=== PATIENT | male | born 1960 | race Caucasian/White ===

== ENCOUNTER 2022-07-17 00:30 | Emergency (ER) | payer OTHER ==
[2022-07-17] MEDS ORDERED: Ondansetron PF 4 MG/2 ML Vial ONE ×2 (01:03→03:12)
[2022-07-17] MEDS ORDERED: Dexmedetomidine 200 MCG/2 ML VIAL ONE (02:28)
[2022-07-17] MEDS ORDERED: SUGAMMADEX SODIUM 200 MG/2 ML VIAL ONE (02:29)
[2022-07-17] MEDS ORDERED: Lidocaine Viscous Sol 2% 15 ml UD Cup ONE (02:29)
[2022-07-17 02:36] LABS: SARS-CoV-2 NAA Rapid Test Not Detected (NotDetected)
[2022-07-17] MEDS ORDERED: PROPOFOL 40 ML ONE (02:39)
[2022-07-17] MEDS ORDERED: Succinylcholine 200 MG/10 ml SYRINGE FS ONE (02:42)
[2022-07-17] MEDS ORDERED: PHENYLEPHRINE-NS 100 MCG/ML 10 ML SYRINGE ONE (02:42)
[2022-07-17] MEDS ORDERED: Lidocaine 2% MPF 10 ML AMP (For Epidural Use) ONE (02:48)
[2022-07-17] MEDS ORDERED: Fentanyl 100 MCG/2 ML VIAL ONE (02:49)
[2022-07-17] MEDS ORDERED: Midazolam HCl 2 mg/2 ml Vial ONE (02:50)
== END 2022-07-17 02:55 | disposition admitted as inpatient to this hospital (09) ==
LOC: CSHERS 00:30
DX: T18.128A Food in esophagus causing other injury, initial encounter (principal); Z20.822 Contact with and (suspected) exposure to COVID-19
CPT/HCPCS: 96374; 96375; J1610; J2250; J2405; J2704; J3010; U0002